=== PATIENT | female | born 1950 | race Caucasian/White ===

== ENCOUNTER 2017-01-03 11:49 | Emergency (ER) | payer OTHER, MEDICAID ==
[~2017-01-03] VITALS: Ht 157.5 cm; Wt 80.7 kg
[2017-01-03 13:36] LABS: BASOPHIL % 0.5 % (0-2); PLATELET COUNT 208 x10^3mcL (130-400)
[2017-01-03 13:38] LABS: RED CELL DISTRIBUTION WIDTH 14.7 % (11.5-14.5)
[2017-01-03 13:42] LABS: CARBON DIOXIDE 26.5 mmol/L (21-32); CHLORIDE SERUM 111 mmol/L (98-107); CREATININE SERUM 0.8 mg/dL (0.6-1.0); GFR1 > 60 mL/min; GLUCOSE SERUM 89 mg/dL (74-106); POTASSIUM SERUM 4.5 mmol/L (3.5-5.1); SODIUM SERUM 147 mmol/L (136-145)
[2017-01-03 14:28] VITALS: BP 122/92
== END 2017-01-03 15:33 | disposition home or self-care (01) ==
LOC: ED 11:49
PROVIDERS: Emergency Medicine
DX: R42 Dizziness and giddiness (principal); R11.2 Nausea with vomiting, unspecified; M19.90 Unspecified osteoarthritis, unspecified site; Z88.8 Allergy status to other drugs, medicaments and biological substances
CPT/HCPCS: J2550; J7030

== ENCOUNTER 2017-07-13 16:26 | Emergency (ER) | payer OTHER, MEDICAID ==
[~2017-07-13] VITALS: Ht 147.3 cm; Wt 76.2 kg
[2017-07-13 16:33] VITALS: Ht 147.3 cm; Wt 76.2 kg
[2017-07-13 18:35] VITALS: BP 104/65
== END 2017-07-13 18:35 | disposition home or self-care (01) ==
LOC: ED 16:26
DX: G89.29 Other chronic pain (principal); M54.5 Low back pain; Z88.8 Allergy status to other drugs, medicaments and biological substances; M19.90 Unspecified osteoarthritis, unspecified site
CPT/HCPCS: J0780; J1885; J3010; J7512

== ENCOUNTER 2018-01-13 16:57 | Emergency (ER) | payer OTHER, MEDICAID ==
[~2018-01-13] VITALS: Ht 144.8 cm; Wt 79.5 kg
[2018-01-13 17:21] VITALS: Ht 144.8 cm; Wt 79.5 kg
[2018-01-13 19:18] VITALS: BP 143/86
== END 2018-01-13 19:49 | disposition home or self-care (01) ==
LOC: ED 16:57
DX: R42 Dizziness and giddiness (principal); R51 Headache; I10 Essential (primary) hypertension; G89.29 Other chronic pain; M54.5 Low back pain
CPT/HCPCS: J2765

== ENCOUNTER 2019-07-28 09:45 | Emergency (ER) | payer OTHER, MEDICAID ==
[~2019-07-28] VITALS: Ht 144.8 cm; Wt 82.1 kg
[2019-07-28 09:53] VITALS: Ht 144.8 cm; Wt 82.1 kg
[2019-07-28 12:37] VITALS: BP 125/74
== END 2019-07-28 12:38 | disposition home or self-care (01) ==
LOC: ED 09:45
DX: S76.911A Strain of unspecified muscles, fascia and tendons at thigh level, right thigh, initial encounter (principal); M54.42 Lumbago with sciatica, left side; M19.90 Unspecified osteoarthritis, unspecified site; Z88.8 Allergy status to other drugs, medicaments and biological substances; Z98.890 Other specified postprocedural states; X50.1XXA Overexertion from prolonged static or awkward postures, initial encounter; Y93.89 Activity, other specified; Y92.89 Other specified places as the place of occurrence of the external cause; Y99.8 Other external cause status
CPT/HCPCS: J1885; Q0092

== ENCOUNTER 2019-09-29 13:04 | Emergency (ER) | payer OTHER, MEDICAID ==
[~2019-09-29] VITALS: Ht 149.9 cm; Wt 81.2 kg
[2019-09-29 13:13] VITALS: Ht 149.9 cm; Wt 81.2 kg
[2019-09-29 14:24] LABS: BASOPHIL % 0.5 % (0-2); PLATELET COUNT 224 x10^3mcL (130-400); RED CELL DISTRIBUTION WIDTH 16.2 % (11.5-14.5)
[2019-09-29 15:01] LABS: CALCIUM 8.9 mg/dL (8.5-10.1); CARBON DIOXIDE 29.2 mmol/L (21-32); CHLORIDE SERUM 102 mmol/L (98-107); CREATININE SERUM 0.8 mg/dL (0.6-1.0); GFR1 > 60 mL/min; GLUCOSE SERUM 116 mg/dL (74-106); POTASSIUM SERUM 3.2 mmol/L (3.5-5.1); SODIUM SERUM 141 mmol/L (136-145)
[2019-09-29 15:06] LABS: ALBUMIN 3.2 g/dL (3.4-5.0); ALKALINE PHOSPHATASE 187 U/L (46-116); ALT/SGPT 54 U/L (14-59); AST/SGOT 57 U/L (15-37); BILIRUBIN TOTAL 0.4 mg/dL (0.20-1.00); LIPASE 103 IU/L (73-393); TOTAL PROTEIN, SERUM 7.1 g/dL (6.4-8.2)
[2019-09-29 15:44] VITALS: BP 118/72
== END 2019-09-29 15:44 | disposition home or self-care (01) ==
LOC: ED 13:04
PROVIDERS: Emergency Medicine
DX: E86.0 Dehydration (principal); R42 Dizziness and giddiness; M19.90 Unspecified osteoarthritis, unspecified site; G89.29 Other chronic pain; I10 Essential (primary) hypertension; Z98.890 Other specified postprocedural states; Z88.8 Allergy status to other drugs, medicaments and biological substances
CPT/HCPCS: 82962; J7030; J8597; Q0092